=== PATIENT | male | born 1965 | race Caucasian/White ===

== ENCOUNTER 2022-06-26 07:47 | Outpatient (CLI) | payer OTHER, SELFPAY | END 2022-06-26 07:48 | disposition home or self-care (01) | LOC: NFLDREF 19:26 | PROVIDERS: PCP Family Medicine; Referring Provider Family Medicine; Visit Provider Family Medicine | DX: Z00.00 Encounter for general adult medical examination without abnormal findings (principal); E78.5 Hyperlipidemia, unspecified; F41.8 Other specified anxiety disorders; F41.9 Anxiety disorder, unspecified | CPT/HCPCS: 80053; 80061; 84153 ==

== ENCOUNTER 2023-09-16 11:35 | Outpatient (CLI) | payer BC, SELFPAY ==
--- OUTSIDE RECORDS SUMMARY | 2023-09-18 12:30 | XMS_ITS | Clinical Summary ---
Author Organization [facility] Address [place], [place] [address] Care Team Providers Care Wireless Retail Manager Name Role Phone Petros Stephens MD Primary Care Provider [phone] Allergies No known active allergies Medications Medication Sig Dispensed Refills Start Date End Date Status tamsulosin (FLOMAX) 0.4 mg capsuleIndications:N octuria Take 1 capsule by mouth once daily after a meal. 30 capsule 2 04/10/2016 Active propranolol (INDERAL) 20 mg tabletIndications:An xiety state TAKE 1 TABLET BY MOUTH ONE TIME NEEDED FOR UP TO 1 DOSE DAILY 90 tablet 03/04/2017 Active Active Problems Problem Noted Date Diagnosed Date Anxiety state, unspecified Overview: PERFORMANCE Immunizations Name Administration Dates Next Due Influenza, IIV3 (Age >=3 years) 01/11/2009 Td (Age >=7 Years) 03/25/1999 Tdap 08/05/2008 Family History Medical History Relation Name Comments Good Health Daughter 1 Good Health Daughter 2 Good Health Daughter 3 Cancer-prostate Father Good Health Mother Good Health Sister Cancer-colon No Family History Diabetes No Family History Heart Disease No Family History Hypertension No Family History Relation Name Status Comments Daughter 1 Alive Daughter 2 Alive Daughter 3 Alive Father Alive Mother Alive Sister Alive Social History Tobacco Use Types Packs/Day Years Used Date Smoking Tobacco: Former Cigarettes Q uit: 03/25/1996 Smokeless Tobacco: Never Comments:07/2010 Alcohol Use Standard Drinks/Week Comments Yes 12 (1 standard drink = 0.6 oz pu re alcohol) 08/05/08 Sex and Gender Information Value Date Recorded Sex Assigned at Not on file Gender Identity Not on file Sexual Orientation Not on file Obstetrics History Last Filed Vital Signs Vital Sign Reading Time Taken Comments Blood Pressure 113/71 11/13/2016 2:06 PM CDT Pulse 69 11/13/2016 2:06 PM CDT Temperature 36.2 ??C (97.1 ??F) 12/27/2015 8:05 AM CD T Respiratory Rate 18 02/13/2010 1:41 PM 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 Oxygen Saturation 99% 08/18/2010 9:47 AM CDT Inhaled Oxygen Concentration - - Weight 95.7 kg (211 lb) 11/13/2016 2:06 PM CDT Height 185.4 cm (6' 1) 11/13/2016 2:06 PM CDT Body Mass Index 27.84 11/13/2016 2:06 PM CDT Plan of Treatment Health Maintenance Due Date Last Done Comments HIV for age 15-65 01/11/1979 Hepatitis C screening for age 18-79 01/11/1982 Zoster (shingles) series for age 50+ (1 of 2) 01/11/2014 Depression screening for age 12+ 12/26/2016 12/27/2015 BMI (ht and wt on same day) for age 18+ 11/13/2017 11/13/2016, 04/10/2016, 12/27/2015 Tetanus booster 08/05/2018 08/05/2008, 03/25/1999 Lipids for age 45-75 12/26/2020 12/27/2015, 08/05/2008, 03/23/2002, Additional history exists COVID-19 vaccine series (2022-24 season) 2022 Influenza for age 50-64 11/24/2023 01/11/2009 Colonoscopy through age 75 09/14/2024 09/14/2014 Tdap Completed 08/05/2008 Pneumococcal series for age 6-64 Aged Out No longer eligible based on patient's age to complete this topic Procedures Procedure Name Priority Date/Time Associated Diagnosis Comments LIPID PANEL W REFLEX MEASURED LDL Routine 12/27/2015 8:51 AM CDT Screening for lipoid disorders SCAN-COLONOSCOPY 09/14/2014 3:00 PM CDT from Last 3 Months or Most Recently Relevant to Health Maintenance Results * (ABNORMAL) LIPID PANEL W REFLEX MEASURED LDL (12/27/2015 8:51 AM CDT) CHOLESTEROL,TOTAL 199 100 - 199 mg/dL 12/27/2015 5:06 PM CDT [facility] TRIGLYCERIDES 86 <150 mg/dL 12/27/2015 5:06 PM CDT [facility] HDL CHOLESTEROL 50 >40 mg/dL 12/27/2015 5:06 PM CDT [facility] NON-HDL CHOLESTEROL 149(H) <145 mg/dl 12/27/2015 5:06 PM CDT [facility] CHOL/HDL RATIO 3.98 <4.50 12/27/2015 5:06 PM CDT [facility] LDL CHOLESTEROL 132(H) <=130 mg/dL 12/27/2015 5:06 PM CDT [facility] PATIENT STATUS FASTING 12/27/2015 5:06 PM CDT [facility] Blood BLOOD SPECIMEN / Unknown Venipuncture / Unknown 12/27/2015 8:51 AM CDT 12/27/2015 8:51 AM CDT Petros Stephens MD [facility] [address] [place] [address], * SCAN-COLONOSCOPY (09/14/2014 3:00 PM CDT) Narrative Transcriptions Sanjay Redd MD - 09/14/2014 2:00 PM CDT [facility], [facility] [address] [place] [address], [address], [place] [address] Patient Name: Ramy Olivier Gender: Male Exam Date: 09/14/2014 Visit Number: [id number] Age: 49 Years 8 Months Date of : 1965 Attending MD: Sanjay Redd MD Medical Record#: [id number] ----- Procedure: Colonoscopy Indications: Colorectal cancer screening Referring MD: Petros Stephens MD Primary MD: Petros Stephens MD Medications: Intra Procedure Medications: Fentanyl given 0.1 mg by IV Midazolam given 2 mg by IV Complications: No immediate complications Procedure: An examination of the heart and lungs was performed and found to be withinacceptable limits. The patient was therefore deemed a reasonablecandidate for endoscopy . The risks and benefits of the procedure were explained to the patient.After obtaining informed consent, the patient was sedated under mydirection and I passed the scope without difficulty via the rectum to the ileum. The appendiceal orificeand ic valve were identified. The scope was retroflexed during theexamination The quality of the prep was excellent (Miralax/Gatorade/2tablets Bisacodyl/Magnesium Citrate). This was a complete examination throughout the entire colon. Findings: Normal finding. Location - ileum. Diverticulosis. Location: - transverse colon - descending colon -sigmoid. Size: large. Quantity: many. No inflammationpresent. Remainder of the exam is normal. * Comments: WT 8 min Impression: Diverticulosis Plan Repeat colonoscopy in 10 years. If you have signs or symptoms of lower GI illness or a new diagnosis ofcolon cancer in an immediate family member, you should contact [facility] or your primary provider to discuss whetheryour next exam should be repeated sooner. We will attempt to contact you at appropriate intervals via U.S. mail. Wemay not be able to find you or contact you at that time, therefore youshould know that the responsibility for following our recommendation restswith you. If you don't hear from us at the time your procedure is due,please contact our office to schedule an appointment. If your contactinformation should change, please contact our office so that we can updateyour records. Electronically signed by: Sanjay Redd MD 09/14/2014 Medications: Medication Dose Sig Description Comments atenolol UNKNOWN take 1 tablet by oral route every day PRN for anxiety Vital Signs: Date Time Systolic Diastolic Height Weight BMI 09/14/2014 2:35 PM 128 88 72 in 193.00 26.20 09/14/2014 4:00PM 122 77 N/A N/A 09/14/2014 4:10 PM 115 72 N/A N/A 09/14/2014 4:17 PM 116 77 N/A N/A Race: Ethnicity: Not or Preferred Language: [place] [facility] [phone] Sanjay Redd MD OTHER from Last 3 Months or Most Recently Relevant to Health Maintenance Advance Directives Documents on File Type Date 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
--- OUTSIDE RECORDS SUMMARY | 2023-09-18 12:30 | XMS_ITS | Clinical Summary ---
Author Organization [facility] Address [address] [place] [address] Care Team Providers Care Agent Name Role Phone Petros Stephens MD Primary Care Provider [phone] Arabella Paul MD Unavailable [phone] Junaid Campbell MD Unavailable [phone] Allergies No known active allergies Medications Medication Sig Dispensed Refills Start Date End Date Status Propranolol HCl (INDERAL PO) Take 20 mg by mouth once as needed Active tamsulosin (FLOMAX) 0.4 MG capsule Take 0.4 mg by mouth 04/10/2016 Active propranolol (INDERAL) 20 MG tablet 03/04/2017 Active Active Problems No known active problems Family History Medical History Relation Comments Cancer Father Relation Status Comments Father Social History Tobacco Use Types Packs/Day Years Used Date Smoking Tobacco: Former Cigarettes Q uit: 09/11/1987 Smokeless Tobacco: Former Alcohol Use Standard Drinks/Week Comments Yes 0 (1 standard drink = 0.6 oz pur e alcohol) 1 per day Sex and Gender Information Value Date Recorded Sex Assigned at Not on file Gender Identity Not on file Sexual Orientation Not on file Last Filed Vital Signs Vital Sign Reading Time Taken Comments Blood Pressure 119/85 04/17/2016 12:30 PM AUTOCUTTER Pulse - - Temperature 36.3 ??C (97.3 ??F) 04/17/2016 11:[address] Respiratory Rate 14 04/17/2016 12:30 PM AUTOCUTTER Oxygen Saturation 95% 04/17/2016 11:45 AM AUTOCUTTER Inhaled Oxygen Concentration - - Weight 95.7 kg (211 lb) 04/17/2016 8:35 AM AUTOCUTTER Height 182.9 cm (6') 04/17/2016 8:35 AM AUTOCUTTER Body Mass Index 28.62 04/17/2016 8:35 AM AUTOCUTTER Plan of Treatment Not on file Care Teams Agent Relationship Specialty Start Date End Date Petros Stephens MD PCP - General Family Practice 09/11/11 Arabella Paul MD [place] [facility] [address] [facility] [address] [place] [address] Referring Physician Ophthalmology 11/20/16 Junaid Campbell MD [address] [place], [place] [id number] Ophthalmology 11/20/16
--- OUTSIDE RECORDS SUMMARY | 2023-09-18 12:30 | XMS_ITS | Referral Summary ---
Author Organization [facility] Address [address] [place] [address] Care Team Providers Care Deputy Sheriff Generalist Name Role Phone Petros Stephens MD Primary Care Provider [phone] Arabella Paul MD Unavailable [phone] Junaid Campbell MD Unavailable [phone] Allergies No known active allergies Medications Medication Sig Dispensed Refills Start Date End Date Status Propranolol HCl (INDERAL PO) Take 20 mg by mouth once as needed Active tamsulosin (FLOMAX) 0.4 MG capsule Take 0.4 mg by mouth 04/10/2016 Active propranolol (INDERAL) 20 MG tablet 03/04/2017 Active Active Problems No known active problems Social History Tobacco Use Types Packs/Day Years [...] Comments Blood Pressure 119/85 04/17/2016 12:30 PM 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 Pulse - - Temperature 36.3 ??C (97.3 ??F) 04/17/2016 11:[address] Respiratory Rate 14 04/17/2016 12:30 PM 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 Oxygen Saturation 95% 04/17/2016 11:45 AM 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 Inhaled Oxygen Concentration - - Weight 95.7 kg (211 lb) 04/17/2016 8:35 AM 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 Height 182.9 cm (6') 04/17/2016 8:35 AM 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 Body Mass Index 28.62 04/17/2016 8:35 AM 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 Plan of Treatment Not on file Care Teams Deputy Sheriff Generalist Relationship Specialty Start Date End Date Petros Stephens MD PCP - General Family Practice 09/11/11 Arabella Paul MD [place] [facility] [address] [facility] [address] [place] [address] Referring Physician Ophthalmology 11/20/16 Junaid Campbell MD [address] [place], [place] [address] Ophthalmology 11/20/16
== END 2023-09-16 11:36 | disposition home or self-care (01) ==
LOC: NFLDREF 09-18 12:29
PROVIDERS: PCP Family Medicine; Referring Provider Family Medicine; Visit Provider Family Medicine
DX: R73.01 Impaired fasting glucose (principal); Z12.5 Encounter for screening for malignant neoplasm of prostate; E78.5 Hyperlipidemia, unspecified
CPT/HCPCS: 80061; G0103

== ENCOUNTER 2025-01-18 08:06 | Outpatient (CLI) | payer BC, SELFPAY | END 2025-01-18 08:07 | disposition home or self-care (01) | LOC: NFLDREF 01-19 17:59 | PROVIDERS: PCP Family Medicine; Referring Provider Family Medicine; Visit Provider Family Medicine | DX: Z13.9 Encounter for screening, unspecified (principal) | CPT/HCPCS: 80053; 80061; G0103 ==

== ENCOUNTER 2025-01-21 10:31 | Outpatient (CLI) | payer BC, SELFPAY | END 2025-01-21 10:32 | disposition home or self-care (01) | PROVIDERS: PCP Family Medicine; Visit Provider Family Medicine | DX: R74.01 Elevation of levels of liver transaminase levels (principal); Z13.9 Encounter for screening, unspecified; R79.89 Other specified abnormal findings of blood chemistry | CPT/HCPCS: 80076; 82977 ==